=== PATIENT | female | born 1980 | race Caucasian/White ===

== ENCOUNTER → 2023-09-05 17:08 | Outpatient (REF) | payer OTHER, SELFPAY | LOC: WDC 17:08 | PROVIDERS: ATTENDING PHYSICIAN Family Medicine | DX: Z12.31 Encounter for screening mammogram for malignant neoplasm of breast (principal) | CPT/HCPCS: 77063; 77067 ==

== ENCOUNTER → 2024-02-06 16:04 | Outpatient (REF) | payer OTHER, SELFPAY | LOC: RAD 16:04 | PROVIDERS: ATTENDING PHYSICIAN Nurse Practitioner Family; FAMILY PHYSICIAN Family Medicine | DX: M25.512 Pain in left shoulder (principal); M54.2 Cervicalgia | CPT/HCPCS: 72050; 73030 ==

== ENCOUNTER → 2024-09-13 08:03 | Outpatient (REF) | payer OTHER, SELFPAY | LOC: WDC 08:03 | PROVIDERS: ATTENDING PHYSICIAN Obstetrics & Gynecology; FAMILY PHYSICIAN Family Medicine | DX: Z12.31 Encounter for screening mammogram for malignant neoplasm of breast (principal) | CPT/HCPCS: 77063; 77067 ==

== ENCOUNTER 2025-02-25 18:21 | Emergency (ER) | payer SELFPAY ==
[2025-02-25 18:22] VITALS: BP 145/91
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
[2025-02-25] MEDS: TYLENOL 1000 MG PO (22:24)
[2025-02-25 22:25] VITALS: BP 145/89
== END 2025-02-25 22:42 | disposition home or self-care (01) ==
LOC: EMR 18:21
PROVIDERS: EMERGENCY PHYSICIAN Emergency Medicine; FAMILY PHYSICIAN Nurse Practitioner Family
DX: S50.11XA Contusion of right forearm, initial encounter (principal); S50.811A Abrasion of right forearm, initial encounter; S40.812A Abrasion of left upper arm, initial encounter; S20.412A Abrasion of left back wall of thorax, initial encounter; V43.52XA Car driver injured in collision with other type car in traffic accident, initial encounter; Z90.49 Acquired absence of other specified parts of digestive tract
CPT/HCPCS: 99283